=== PATIENT | male | born 1945 | race Hispanic/Latino ===

== ENCOUNTER 2019-06-16 05:38 | Day surgery (SDC) | payer OTHER ==
[2019-06-12 09:45] VITALS: BP 149/67
[2019-06-12 10:06] LABS: APPEARANCE,URINE CLEAR (CLEAR); BASOPHILS % (AUTO) 0.9 % (0.0-5.0); BILIRUBIN,URINE NEGATIVE (NEGATIVE); COLOR,URINE YELLOW (YELLOW); EOSINOPHILS % (AUTO) 1.8 % (0.0-8.0); GLUCOSE, URINE (UA) NEGATIVE (NEGATIVE); HEMATOCRIT 34.3 % (42-54); KETONES,URINE NEGATIVE (NEGATIVE); LEUKOCYTE ESTERASE ,URINE NEGATIVE (NEGATIVE); LYMPHOCYTES % (AUTO) 25.6 % (21.0-51.0); MEAN CORPUSCULAR HEMOGLOBIN 32.2 pg (27.0-33.0); MEAN CORPUSCULAR HGB CONC 33.3 g/dL (32.0-36.0); MEAN CORPUSCULAR VOLUME 96.7 fL (79-99); MONOCYTES % (AUTO) 9.3 % (3.0-13.0); NEUTROPHILS % (AUTO) 62.4 % (40.0-77.0); NITRATE,URINE NEGATIVE (NEGATIVE); OCCULT BLOOD,URINE NEGATIVE (NEGATIVE); PLATELET COUNT (AUTO) 170 K/uL (130-400); PROTEIN,URINE TRACE mg/dL (NEGATIVE); RED BLOOD CELL COUNT(AUTO) 3.54 MIL/uL (4.50-6.20); RED CELL DISTRIBUTION WIDTH 13.5 % (11.0-15.5); UROBILINOGEN,URINE 0.2 mg/dL (0.2-1.0)
[2019-06-12 10:11] LABS: BACTERIA,URINE Rare /HPF (None Seen); RBC,URINE 0-1 /HPF (0-1); SQUAMOUS EPITHELIAL CELL,UR Rare /HPF (0-2); WBC,URINE 0-1 /HPF (0-1)
[2019-06-12 10:15] LABS: CREATININE 1.4 mg/dL (0.5-1.5); POTASSIUM 4.5 mmol/L (3.5-5.1)
[2019-06-12 10:22] LABS: INR 1.04 (0.85-1.15); PARTIAL THROMBOPLASTIN TIME 25.8 SEC (26.3-35.5); PROTHROMBIN TIME 10.9 SEC (9.6-11.6)
--- NOTE | 2019-06-13 09:47 | NUR ---
labs abnormal labs called to Dr. Tan Smith, message left with Valeria his nurse. per her request fax labs so Md can review. will call back if any further orders
--- NOTE | 2019-06-13 14:55 | NUR ---
LABS PER Bev TAYLOR, EXTRACTOR MACHINE OPERATOR OK TO PROCEED WITH PLANNED PROCEDURE. ENCOURAGED PT TO HYDRATE PRIOR TO PROCEDURE. CALLED PT AND INFORMED TO DRINK PLENTY OF FLUIDS OVER THE WEEKEND. PT VERBALIZED UNDERSTANDING.
[~2019-06-16] VITALS: Ht 168.9 cm; Wt 93.3 kg
[2019-06-16] VITALS (10 sets, daily range): BP systolic 126–150; BP diastolic 40–67
[~2019-06-16 05:38] MED LIST: AEC81 PO; ATOR-2 PO; BRIM5DRO4 OU; CHOL100040 PO; CYAN100099 PO; DORZ10DR10 OU; FERR-82 PO; FURO40TA5 PO; INSLAN SQ; INSU100I15 SQ; ISOS120T14 PO; LATA7.5D OU; LIRA0.6P SQ; LORA10CA9 PO; LOSA100T58 PO; METF-446 PO; METO100T14 PO; MULT-1258 PO; PIOG15TA66 PO; RANI150C4 PO; SERT100T12 PO
--- NOTE | 2019-06-16 06:21 | NUR ---
ARRIVED ON UNIT PATIENT ARRIVED TO UNIT ACCOMPANIED BY SPOUSE, JAMES GALLOWAY. PATIENT AAOX3, NO C/O PAIN AT THIS TIME. PATIENT ORIENTED TO HOSPITAL, PROCEDURE VERIFIED WITH PATIENT AND INSTRUCTED TO CHANGE INTO HOSPITAL GOWN. MEDICATIONS BROUGHT WITH PATIENT AND RECONCILED BY NURSE.
--- NOTE | 2019-06-16 07:15 | NUR ---
PATIENT TRANSFERRED PATIENT TAKEN TO CIVIL DESIGN TECHNICIAN VIA BED BY NILE MITCHELL FOR LEFT HEART CATH PROCEDURE TO BE DONE BY DR PACHECO.
[2019-06-16] MEDS ORDERED: IOHEXOL-350 50ML VIAL IV ONE ×2 (07:18→09:10)
[2019-06-16] MEDS ORDERED: IOHEXOL 350 MG/ML 100ML INFUS..BTL IV ONE (07:18)
[2019-06-16] MEDS ORDERED: LIDOCAINE HCL 2% 20ML ONE (07:18)
[2019-06-16] MEDS ORDERED: NITROGLYCERIN 5 MG/ML 10 ML VIAL IV ONE (07:18)
[2019-06-16] MEDS ORDERED: ATOR40TA69 PO (07:33)
[2019-06-16] MEDS ORDERED: SODIUM CHLORIDE 0.9% 1000ML 1,000 ML IV ONE (07:44)
[2019-06-16] MEDS ORDERED: MIDAZOLAM HCL 1 MG/ML 2ML VIAL ONE (07:56)
[2019-06-16] MEDS ORDERED: BIVALIRUDIN 250 MG/VIAL IV ONE (08:33)
[2019-06-16] MEDS ORDERED: PRASUGREL HCL 10 MG TABLET ONE (08:37)
[2019-06-16] MEDS ORDERED: ASPIRIN 325MG EC TAB 325 MG TABLET.DR PO ONE (08:37)
[2019-06-16] MEDS ORDERED: LABETALOL 20 MG/4 ML DISP.SYRIN IV ONE ×2 (09:31→09:45)
[2019-06-16] MEDS ORDERED: SODIUM CHLORIDE 0.9% 1000ML 1,000 ML IV SCH (09:34)
[2019-06-16] MEDS ORDERED: ONDANSETRON HCL 4 MG/2 ML VIAL IVP PRN (09:45)
--- NOTE | 2019-06-16 10:05 | NUR ---
PATIENT RETURNED: PATIENT BROUGHT BACK FROM BATTERY STARTER BY NILE MITCHELL. PATIENT AAOX3, RESPIRATIONS UNLABORED, NO C/O PAIN. DRESSING TO RIGHT GROIN AREA IS DRY AND INTACT, SOFT TO TOUCH AND NONTENDER. PATIENT'S SPOUSE IS AT BEDSIDE.
--- NOTE | 2019-06-16 15:50 | NUR ---
PATIENT DISCHARGED AND TAKEN TO PRIVATE VEHICLE VIA WHEELCHAIR, PATIENT ACCOMPANIED BY AND DRIVEN BY SPOUSE.
== END 2019-06-16 15:50 ==
LOC: DAH 05:38
PROVIDERS: ATTEND Internal Medicine Cardiovascular Disease
DX: I25.118 Atherosclerotic heart disease of native coronary artery with other forms of angina pectoris (principal); R94.39 Abnormal result of other cardiovascular function study; E78.5 Hyperlipidemia, unspecified; I11.0 Hypertensive heart disease with heart failure; I50.32 Chronic diastolic (congestive) heart failure; E66.01 Morbid (severe) obesity due to excess calories; I48.0 Paroxysmal atrial fibrillation; E11.59 Type 2 diabetes mellitus with other circulatory complications; I25.5 Ischemic cardiomyopathy; Z68.32 Body mass index [BMI] 32.0-32.9, adult; Z79.82 Long term (current) use of aspirin; Z79.899 Other long term (current) drug therapy; Z79.84 Long term (current) use of oral hypoglycemic drugs; Z79.4 Long term (current) use of insulin; Z95.1 Presence of aortocoronary bypass graft; Z98.52 Vasectomy status; Z90.49 Acquired absence of other specified parts of digestive tract
CPT/HCPCS: 36415; 71045; 80048; 81001; 82948 ×3; 85025; 85610; 85730; 93005 ×2; 93459; A4606; C1725 ×2; C1760; C1769 ×2; C1874; C1887; C1894 ×2; C9600; J0583; J1644 ×2; J2250; J3490 ×2; J7030; Q9965 ×2; Q9967 ×3; 99156; 99157

== ENCOUNTER → 2021-03-09 | Outpatient (CLI) | payer OTHER ==
[~2021-03-09] MED LIST changes: -ATOR-2 PO; +ATOR40TA69 PO; +SERT-440 PO; -SERT100T12 PO
== END | disposition home or self-care (01) ==
LOC: RAH 09:12
PROVIDERS: ATTEND Family Medicine
DX: R13.12 Dysphagia, oropharyngeal phase (principal)
CPT/HCPCS: 74230; 92611